=== PATIENT | female | born 1975 | race Native Hawaiian/Other Pacific Islander ===

== ENCOUNTER 2022-04-05 18:34 | Emergency (ER) | payer OTHER ==
[~2022-04-05] VITALS: Ht 167.6 cm; Wt 108.9 kg
[2022-04-05 19:06] LABS: PLATELET COUNT 503 K/uL (152-353)
[2022-04-05 19:15] LABS: POTASSIUM 3.2 mmol/L (3.6-5.2)
[2022-04-05 19:26] LABS: PARTIAL THROMBOPLASTIN TIME 29.7 SECONDS (24.5-33.6)
[2022-04-05 22:20] VITALS: BP 123/77; TEMP 98.8
== END 2022-04-05 22:25 | disposition home or self-care (01) ==
LOC: ED 18:34
PROVIDERS: Family Medicine
DX: I16.1 Hypertensive emergency (principal); G43.909 Migraine, unspecified, not intractable, without status migrainosus; F17.210 Nicotine dependence, cigarettes, uncomplicated
CPT/HCPCS: 36415; 80053; 80307; 81000; 84484; 85027; 85610; 85730; 93005; 96374; 96375; 96376; 99284; J1885; J3360; J3490

== ENCOUNTER 2022-05-23 08:35 | Outpatient (CLI) | payer OTHER | END 2022-05-23 19:29 | disposition home or self-care (01) | LOC: MAMMO 08:35 | PROVIDERS: ATTEND Nurse Practitioner Primary Care | DX: N64.52 Nipple discharge (principal); E01.0 Iodine-deficiency related diffuse (endemic) goiter | CPT/HCPCS: G0279 ==